=== PATIENT | male | born 1985 | race Caucasian/White ===

== ENCOUNTER 2021-11-01 05:40 | Day surgery (SDC) | payer OTHER ==
[2021-11-01] MEDS ORDERED: Lactated Ringers 1,000 ML IV ONE (06:42)
[2021-11-01] MEDS ORDERED: DIPRIVAN 200 MG/20 ML IV ONE ×2 (06:43→08:13)
[2021-11-01] MEDS ORDERED: Versed 2 MG/2 ML Injection ONE (06:43)
[2021-11-01] MEDS ORDERED: Xylocaine-Mpf 2% 5 Ml Vial ONE (06:43)
[2021-11-01] MEDS ORDERED: Lactated Ringers 1,000 ML IV SCH (07:00)
[2021-11-01 09:11] VITALS: BP 132/91; PULSE 67; O2SAT 100
--- NOTE | 2021-11-01 14:55 | OP ---
SURGERY DATE/TIME: 11/01/2021 0801 PREOPERATIVE DIAGNOSIS: Chronic diarrhea and weight loss. POSTOPERATIVE DIAGNOSIS: Inflammatory colitis and small sigmoid colon polyp. PROCEDURE: Colonoscopy with hot snare polypectomy and cold forceps random biopsy. SURGEON: Dr. Gabriel Cueto. ANESTHESIA: MAC. Medications given by anesthesia department. HISTORY: The patient is a 36-year-old white male patient presenting now with a month history of diarrhea and significant weight loss. The patient is felt the need to have endoscopic evaluation. He was appraised of the risks of the procedure including the risk of perforation, phlebitis, untoward reaction to medication, bleeding and missed lesions. The patient verbalized his understanding and desired to have the procedure performed. DESCRIPTION OF PROCEDURE: The patient was given the medications by the anesthesia department. He had continuous pulse oximetry, ECG monitoring, intermittent blood pressure monitoring during the examination. He was placed in the left lateral decubitus position. A digital rectal examination was performed and revealed normal anal sphincter tone and no masses. The flexible Olympus pediatric colonoscope was used to intubate the rectum. A view of the colon was developed sequentially to the cecum including a short distance in the terminal ileum. Upon insertion and withdrawal was noted patchy areas of erythema and what appeared to be inflammatory polyps. One was removed using a hot snare and retrieved for pathologic evaluation. There were also random biopsies performed throughout the colon to confirm the clinical appearance of what was felt to be likely ulcerative colitis or Crohn's disease.
== END 2021-11-01 09:13 | disposition home or self-care (01) ==
LOC: SDC 05:40
PROVIDERS: ATTEND Family Medicine
DX: D12.5 Benign neoplasm of sigmoid colon (principal); K52.9 Noninfective gastroenteritis and colitis, unspecified; R63.4 Abnormal weight loss; E11.9 Type 2 diabetes mellitus without complications
CPT/HCPCS: 82947; J2250; J2704

== ENCOUNTER 2022-02-16 06:59 | Day surgery (SDC) | payer OTHER ==
--- NOTE | 2022-02-14 14:32 | HP ---
DATE OF SURGERY: 02/16/2022 HISTORY OF PRESENT ILLNESS: The patient is a 36-year-old male presented with complaints of ventral hernia. He has got about a 4 cm upper mid right abdominal hernia. He is having some pain with this and wants it repaired. 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 PAST MEDICAL HISTORY: Hypothyroid. Diabetes. Hyperlipidemia. Gastroesophageal reflux disease. Depression. PAST SURGICAL HISTORY: Hernia repair. Cholecystectomy, splenectomy. ALLERGIES: NKDA. MEDICATIONS: Novolin, atorvastatin, Januvia, levothyroxine, Basaglar, Protonix. FAMILY HISTORY: Congestive heart failure, diabetes. SOCIAL HISTORY: Every day smoker, infrequently drinks alcohol. REVIEW OF SYSTEMS: CONSTITUTIONAL: Denies fever or chills. CHEST: Denies shortness of breath. CVS: Denies chest pain. ABDOMEN: Reports ventral hernia pain. PHYSICAL EXAMINATION: GENERAL: No acute distress. CHEST: Nonlabored. No shortness of breath. CVS: Regular rate and rhythm. ABDOMEN: Soft. IMPRESSION: Ventral hernia 4 cm upper mid right abdomen. PLAN: Ventral hernia repair with mesh with Dr. Rufino Still. As dictated by Candi Weir NP.
[2022-02-16] MEDS ORDERED: Versed 2 MG/2 ML Injection IV PRN (07:05)
[2022-02-16] MEDS ORDERED: Xopenex 1.25 MG/0.5 ML UD NEBULE IH ONE ×2 (07:05→07:24)
[2022-02-16] MEDS ORDERED: Pepcid 20 MG VIAL IV ONE ×3 (07:05→07:38)
[2022-02-16] MEDS ORDERED: Reglan 10 MG/2 ML IV ONE (07:05)
[2022-02-16] MEDS ORDERED: Sodium Chloride 3 ML UD NEBULES IH ONE (07:24)
[2022-02-16] MEDS ORDERED: Sensorcaine 0.25% 10 ML ONE (07:26)
[2022-02-16] MEDS ORDERED: Lactated Ringers 1,000 ML IV ONE ×2 (07:26→07:35)
[2022-02-16] MEDS ORDERED: Lactated Ringers 1,000 ML IV SCH (07:30)
[2022-02-16] MEDS ORDERED: Versed 2 MG/2 ML Injection ONE (07:35)
[2022-02-16] MEDS ORDERED: Reglan 10 MG/2 ML ONE (07:41)
[2022-02-16 07:46] VITALS: BP 126/81; PULSE 94; O2SAT 93
[2022-02-16] MEDS ORDERED: CEFAZOLIN 2 GM-D5W BAG** 2 GM/50 ML ML IV SCH (08:00)
== END 2022-02-16 08:25 | disposition home or self-care (01) ==
LOC: SDC 06:59
PROVIDERS: ATTEND Surgery
DX: E11.9 Type 2 diabetes mellitus without complications (principal); Z53.8 Procedure and treatment not carried out for other reasons
CPT/HCPCS: 82947; 94640; J0690; J2250; A9270-GY